=== PATIENT | male | born 1980 | race Caucasian/White ===

== ENCOUNTER 2021-04-29 20:18 | Emergency (ER) | payer OTHER ==
[2021-04-30 00:09] LABS: BASOPHIL 0.6 % (0-2); BILIRUBIN 1+ mg/dL (NEGATIVE); BLOOD 2+ Ery/uL (NEGATIVE); CLARITY CLEAR (CLEAR); COLOR YELLOW (YELLOW); EOSINOPHIL 0 % (0-5); GLUCOSE (U) NORMAL (NORMAL); HCT 45.3 % (42.0-52.0); HGB 15.8 g/dl (13.2-18.0); LEUKOCYTES NEGATIVE Leu/uL (NEGATIVE); LYMPHOCYTE 19.9 % (15-48); MCH 31.3 pg (25.0-31.0); MCHC 34.9 g/dL (32.0-36.0); MCV 89.9 fL (78.0-100.0); MONOCYTE 7.4 % (0-12); MPV 9.6 fL (6.0-9.5); NEUTROPHIL 71.8 % (41-80); NITRITE NEGATIVE (NEGATIVE); NRBC 0; PLT 155 K/uL (150-400); PROTEIN TRACE (LOW) mg/dL (NEGATIVE); RBC 5.04 M/uL (4.70-6.00); RDW 12.2 % (11.5-14.0); SPECIFIC GRAVITY 1.025 (1.001-1.030); WBC 7.1 K/uL (4.0-10.5); pH 5.5 (5.0-9.0)
[2021-04-30 00:28] LABS: ALBUMIN 3.5 g/dL (3.4-5.0); BILIRUBIN - TOTAL 0.8 mg/dL (0.2-1.0); BUN/CREAT RATIO (CALC) 15.1 RATIO; CREATININE 0.86 mg/dL (0.67-1.17); GLOBULIN (CALCULATION) 4.3 g/dL; POTASSIUM 4.1 mmol/L (3.5-5.1); TOTAL PROTEIN 7.8 g/dL (6.4-8.2)
[2021-04-30 00:33] LABS: AMORPHOUS URATES CRYSTALS TRACE; BACTERIA TRACE; SQUAMOUS EPITHELIAL CELLS RARE; URINARY WBC RARE
[2021-04-30] MEDS ORDERED: AZITHROMYCIN250 MG PO (05:28)
[2021-04-30] MEDS ORDERED: NORCO 5-325 TA1 EACH PO (05:28)
[2021-04-30] MEDS ORDERED: TESSALON PERLE100 MG PO (05:28)
[2021-04-30] MEDS ORDERED: MEDROL 4MG DOSEP4 MG PO (05:28)
== END 2021-04-30 06:01 | disposition home or self-care (01) ==
LOC: FER 20:18
PROVIDERS: Emergency Medicine Emergency Medical Services
DX: M54.9 Dorsalgia, unspecified (principal); U07.1 COVID-19; R20.2 Paresthesia of skin; R91.8 Other nonspecific abnormal finding of lung field; E04.1 Nontoxic single thyroid nodule; R91.1 Solitary pulmonary nodule; J44.9 Chronic obstructive pulmonary disease, unspecified; G89.29 Other chronic pain; Z87.891 Personal history of nicotine dependence; Z79.899 Other long term (current) drug therapy
CPT/HCPCS: 36415; 71275; 80053; 81001; 85025; 85379; J1100; J1885; J2800; J7030; J7050; M0243; Q9967; U0002